=== PATIENT | female | born 1995 | race Caucasian/White ===

== ENCOUNTER 2021-04-01 01:17 | Emergency (ER) | payer BC ==
[2021-04-01] MEDS ORDERED: ONDANSETRON 4 MG/2 ML VIAL ONE (01:47)
[2021-04-01] MEDS ORDERED: KETOROLAC 30 MG/ML INJ ONE (01:47)
[2021-04-01 02:15] LABS: Absolute Lymphocytes (CBC) 2.8 K/uL (0.7-4.9); Hematocrit 43.7 % (36.0-45.0); Lymphocytes % 30.5 % (15.3-44.8); MPV 8.9 fL (7.6-11.3); RBC Red Blood Cell Count 4.97 M/uL (3.86-4.86)
[2021-04-01 02:27] LABS: ALT/SGPT 71 U/L (12-78); AST/SGOT 15 U/L (15-37); Albumin 3.9 g/dL (3.4-5.0); Alkaline Phosphatase 87 U/L (45-117); BUN Blood Urea Nitrogen 15 mg/dL (7-18); Bicarbonate 30 mmol/L (21-32); Bilirubin Direct < 0.1 mg/dL (0-0.2); Bilirubin Total 0.2 mg/dL (0.2-1.0); Glucose Level 139 mg/dL (74-106); Lipase 65 U/L (73-393); Potassium 3.9 mmol/L (3.5-5.1); Protein, Total 7.7 g/dL (6.4-8.2); Sodium Level 139 mmol/L (136-145)
--- NOTE | 2021-04-01 02:31 | ER ---
Nurse's Notes [facility] Name: Connie Murry Age: 25 yrs Sex: Female : 1995 Arrival Date: 04/01/2021 Time: 01:20 Bed 5 Private MD: Diagnosis: Other cholelithiasis without obstruction Presentation: 04/01 01:26 Chief complaint: Patient states: C/O back pain, N/VD, abdominal pain, States "I'm ll3 having a gallbladder attack". Coronavirus screen: At this time, the client does not indicate any symptoms associated with coronavirus-19. Ebola Screen: No symptoms or risks identified at this time. Initial Sepsis Screen: Does the patient meet any 2 criteria? No. Patient's initial sepsis screen is negative. Does the patient have a suspected source of infection? No. Patient's initial sepsis screen is negative. Risk Assessment: Do you want to hurt yourself or someone else? Patient reports no desire to harm self or others. Onset of symptoms was March 31, 2021 at 22:30. 01:26 Method Of Arrival: Ambulatory ll3 01:26 Acuity: ROBERT 3 ll3 Triage Assessment: :28 General: Appears uncomfortable, Behavior is calm, cooperative. Pain: Complains of pain ll3 in right lower quadrant and right upper quadrant Pain does not radiate. Pain currently is 9 out of 10 on a pain scale. Quality of pain is described as dull, pressure, stabbing, tender, Is continuous, Aggravated by increased activity, repositioning. Neuro: Level of Consciousness is awake, alert, obeys commands, Oriented to person, place, time, situation. Cardiovascular: Patient's skin is warm and dry. Respiratory: Respiratory effort is even, unlabored, Respiratory pattern is regular, symmetrical. GI: Abdomen is round non-distended, Stools are reported to be loose, Last BM at 00:00. Abd is soft X 4 quads Abdomen is tender to palpation in right upper quadrant and right lower quadrant Reports lower abdominal pain, upper abdominal pain, diarrhea, nausea, vomiting. Derm: Skin is pink, warm \\T\\ dry. 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 - Social history:: Smoking status: Patient denies any tobacco usage or history of. Screenin:00 Abuse screen: Denies threats or abuse. Nutritional screening: No deficits noted. sf1 Tuberculosis screening: No symptoms or risk factors identified. Fall Risk None identified. Assessment: 02:01 General: Appears uncomfortable, Behavior is cooperative. Pain: Complains of pain in sf1 right upper quadrant. Neuro: No deficits noted. Cardiovascular: No deficits noted. Respiratory: No deficits noted. GI: Reports lower abdominal pain, diarrhea, nausea, vomiting. : No deficits noted. EENT: No deficits noted. Musculoskeletal: No deficits noted. Vital Signs: 01:26 BP 136 / 88; Pulse 81; Resp 15; Temp 97.0(TE); Pulse Ox 100% on R/A; Weight 83.91 kg ll3 (R); Height 5 ft. 10 in. (177.80 cm) (R); Pain 9/10; 02:42 BP 125 / 60; Pulse 78; Resp 16; Pulse Ox 100% on R/A; st1 01:26 Body Mass Index 26.54 (83.91 kg, 177.80 cm) ll3 ED Course: 01:20 Patient arrived in ED. ja2 01:25 [facility] Mull[facility]C [facility] kb 01:25 Brady Wilson MD is Attending Physician. kb 01:28 Triage completed. ll3 01:28 Angelina Jimenez, MATEO is Primary Nurse. st1 01:28 Arm band placed on left wrist. ll3 01:30 Patient has correct armband on for positive identification. Bed in low position. Call st1 light in reach. Side rails up X 1. 01:54 US Abdomen Limited In Process Unspecified. EDMS 01:59 Basic Metabolic Panel Sent. sf1 01:59 Inserted saline lock: 20 gauge in right antecubital area, using aseptic technique. sf1 Blood collected. 01:59 CBC with Diff Sent. sf1 01:59 Lipase Sent. sf1 01:59 Hepatic Function Sent. sf1 01:59 Basic Metabolic Panel Sent. sf1 02:00 Liver (Hepatic) Function Sent. sf1 02:43 No provider procedures requiring assistance completed. IV discontinued, intact, st1 bleeding controlled, No redness/swelling at site. Pressure dressing applied. Administered Medications: 01:58 Drug: Zofran (Ondansetron) 4 mg Route: IVP; Site: right antecubital; sf1 02:00 Drug: Ketorolac 15 mg Route: IVP; Site: right antecubital; sf1 Outcome: 02:30 Discharge ordered by . nya 02:43 Discharged to home ambulatory, with family. st1 02:43 Condition: stable 02:43 Discharge instructions given to patient, Instructed on discharge instructions, follow up and referral plans. medication usage, Demonstrated understanding of instructions, follow-up care, medications. 02:44 Patient left the ED. st1 Signatures: Dispatcher [employer] EDMS Marquita Mulligan, ENTRY TABLE OPERATOR-C ENTRY TABLE OPERATOR-Ckb Britany Quintana [place], RN RN ll3 Angelina Jimenez RN RN st1 Kasey Sauceda RN RN sf1
--- NOTE | 2021-04-01 02:31 | EDPHYS ---
Physician Documentation [facility] Name: Connie Murry Age: 25 yrs Sex: Female : 1995 Arrival Date: 04/01/2021 Time: 01:20 Bed 5 Private MD: ED Physician Brady Wilson HPI: 04/01 01:28 This 25 yrs old Female presents to ER via Ambulatory with complaints of GALLBLADDER kb ATTACK. 01:28 The patient presents with abdominal pain in the right upper quadrant. Onset: The kb symptoms/episode began/occurred at 22:30. The symptoms radiate to right back, right lower quadrant. Associated signs and symptoms: Pertinent positives: nausea, vomiting, and diarrhea, Pertinent negatives: fever. The symptoms are described as constant. Modifying factors: The symptoms are alleviated by nothing, the symptoms are aggravated by pressure. Severity of pain: At its worst the pain was moderate in the emergency department the pain is unchanged. The patient has experienced similar episodes in the past. The patient has not recently seen a physician. pt reports she is having a gallbladder attack. States this is the 4th time this week. States the pain starts in RUQ and radiates to back and lower abd. 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 - Social history:: Smoking status: Patient denies any tobacco usage or history of. ROS: 01:28 Constitutional: Negative for fever, chills, and weight loss. kb 01:28 Abdomen/GI: Positive for abdominal pain, nausea, vomiting, and diarrhea. 01:28 All other systems are negative. Exam: 01:28 Constitutional: This is a well developed, well nourished patient who is awake, alert, kb and in no acute distress. Head/Face: Normocephalic, atraumatic. ENT: Moist Mucous membranes Respiratory: Respirations even and unlabored. No increased work of breathing. Talking in full sentences Skin: Warm, dry with normal turgor. Normal color. MS/ Extremity: Pulses equal, no cyanosis. Neurovascular intact. Full, normal range of motion. Neuro: Awake and alert, GCS 15, oriented to person, place, time, and situation. Moves all extremities. Normal gait. Psych: Awake, alert, with orientation to person, place and time. Behavior, mood, and affect are within normal limits. 01:28 Abdomen/GI: Inspection: abdomen appears normal, Bowel sounds: normal, in all quadrants, Palpation: soft, in all quadrants, moderate abdominal tenderness, in the right upper quadrant and right lower quadrant. Vital Signs: 01:26 BP 136 / 88; Pulse 81; Resp 15; Temp 97.0(TE); Pulse Ox 100% on R/A; Weight 83.91 kg ll3 (R); Height 5 ft. 10 in. (177.80 cm) (R); Pain 9/10; 02:42 BP 125 / 60; Pulse 78; Resp 16; Pulse Ox 100% on R/A; st1 01:26 Body Mass Index 26.54 (83.91 kg, 177.80 cm) ll3 MDM: 01:25 Patient medically screened. kb 01:28 Data reviewed: vital signs, nurses notes. Data interpreted: Pulse oximetry: on room air kb is 100 %. Interpretation: normal. 02:29 Counseling: I had a detailed discussion with the patient and/or guardian regarding: the kb historical points, exam findings, and any diagnostic results supporting the discharge/admit diagnosis, lab results, radiology results, the need for outpatient follow up, a general surgeon, to return to the emergency department if symptoms worsen or persist or if there are any questions or concerns that arise at home. 04/01 01:25 Order name: Basic Metabolic Panel kb 04/01 01:25 Order name: CBC with Diff; Complete Time: 02: kb 04/01 01:25 Order name: Hepatic Function kb 04/01 01:25 Order name: Lipase; Complete Time: : kb 04/01 01:26 Order name: Basic Metabolic Panel; Complete Time: 02:29 EDMS 04/01 01:26 Order name: Liver (Hepatic) Function; Complete Time: 02:29 EDMS 04/01 01:24 Order name: US Abdomen Limited kb 04/01 01:25 Order name: IV Saline Lock; Complete Time: 01:59 kb 04/01 01:25 Order name: Labs collected and sent; Complete Time: 01:59 kb Administered Medications: 01:58 Drug: Zofran (Ondansetron) 4 mg Route: IVP; Site: right antecubital; sf1 02:00 Drug: Ketorolac 15 mg Route: IVP; Site: right antecubital; sf1 Disposition: 03:03 Co-signature as Attending Physician, Brady Wilson MD I agree with the assessment and kdr plan of care. Disposition Summary: 04/01/21 02:30 Discharge Ordered Location: Home kb Condition: Stable kb Diagnosis - Other cholelithiasis without obstruction kb Followup: kb - With: Emergency Department - When: As needed - Reason: Worsening of condition Followup: kb - With: Private Physician - When: 2 - 3 days - Reason: Recheck today's complaints, Continuance of care, Re-evaluation by your physician Discharge Instructions: - Discharge Summary Sheet kb - Cholelithiasis, [id number] kb Forms: - Medication Reconciliation Form kb - Thank You Letter kb - Antibiotic Education kb - Prescription Opioid Use kb Prescriptions: - Zofran 4 mg Oral Tablet - take 1 tablet by ORAL route every 6 hours As needed; 20 tablet; Refills: 0, kb Product Selection Permitted - dicyclomine 20 mg Oral Tablet - take 1 tablet by ORAL route 4 times per day As needed; 20 tablet; Refills: 0, kb Product Selection Permitted Signatures: Dispatcher [employer] EDMS Marquita Mulligan, JACKIE-C JACKIE-Brady Coronado MD MD [facility] Rene Bonner RN RN 3 Kasey Sauceda RN RN sf1 Corrections: (The following items were deleted from the chart) 01:51 01:28 pt reports she is having a gallbladder attack. States this is the 4th time this kb week. . kb
[2021-04-01 02:57] VITALS: TEMP 97; O2SAT 100
[2021-04-01 02:58] VITALS: BP 125/60
--- NOTE | 2021-04-01 07:48 | RAD REPORT ---
EXAM DESCRIPTION: US - Abdomen Exam Limited - 04/01/2021 1:54 am CLINICAL HISTORY: ABD PAIN Preliminary findings provided at the time of the study. COMPARISON: No comparisons FINDINGS: A cluster of 3-4 mm sized echogenic foci are present in the gallbladder fundus. Posterior acoustic shadowing is present. These foci remain adherent to the wall with changes in patient positio vasyl. No mobile gallstones could be confirmed. There is no wall thickening or pericholecystic fluid. No common duct stone or biliary tree dilatation identified. IMPRESSION: Cluster of small 3-4 mm sized gallstones adherent to the wall in the fundus. No mobile g allstones confirmed. No gallbladder wall abnormalities. No biliary tree abnormality.
== END 2021-04-01 02:44 | disposition home or self-care (01) ==
LOC: ER 01:17
DX: K80.80 Other cholelithiasis without obstruction (principal)
CPT/HCPCS: 85025; 80048; 36415; 80076; 83690; 76705; 96375; 96374; 99284; J2405